=== PATIENT | female | born 1985 | race African-American/Black ===

== ENCOUNTER 2017-10-21 00:35 | Emergency (ER) | payer OTHER ==
[~2017-10-21] VITALS: Ht 160 cm; Wt 106.9 kg
[~2017-10-21 00:35] MED LIST: FIORIC PO; FLUC100T2 PO; MACR100C PO; PHEN-426 PO; PROM25TA5 PO
[2017-10-21 00:44] VITALS: BP 162/92; PULSE 97; RESP 20; TEMP 98.3; O2SAT 98
--- NOTE | 2017-10-21 03:34 | PD ---
HPI Chief Complaint: Porter Luggage Problem/Complaint Time Seen by Provider: 03:31 Travel History International Travel<30 days: No Contact w/Intl Traveler<30days: No Traveled to known affect area: No History of Present Illness HPI The patient is a 5-year-old female, G0, P0, A0 that complains of some slight left pelvic pain that occasionally goes over to the right. Her pain intensity is only a 4/10 and all pain. She has never had this pain before. She is sexually active without protection. She denies any nausea, vomiting, fever. She denies any foul-smelling vaginal discharge. She does not use control pills. She does not have a elevator repairer helper. The patient states she missed her last menstrual period and she normally has regular periods. [facility] Past Medical History Medical History: Denies Significant Hx Diminished Hearing: No Influenza Vaccination: No ?: Unknown LMP: 08/14/17 : 0 Past Surgical History Surgical History: No Previous Surgery Social History Alcohol Use: Yes (SOCIAL) Tobacco Use: No ("LAST TIME I SMOKED WAS AGE 30") Substance Use: No Allergies-Medications (Allergen,Severity, Reaction): Coded Allergies: chocolate flavor (Unverified Allergy, Severe, RASH, 10/21/17) Reported Meds & Prescriptions Reported Meds & Active Scripts Active Ibuprofen 600 Mg Tab 600 Mg PO TID Review of Systems Except as stated in HPI: all other systems reviewed are Neg Physical Exam Narrative GENERAL: The patient is obese, alert, oriented 3 in minimal apparent distress with her left pelvic pain. Her vital signs show blood pressure 162/92 but otherwise are normal. SKIN: Focused skin assessment warm/dry. HEAD: Atraumatic. Normocephalic. EYES: Pupils equal and round. No scleral icterus. No injection or drainage. ENT: No nasal bleeding or discharge. Mucous membranes pink and moist. NECK: Trachea midline. No JVD. CARDIOVASCULAR: Regular rate and rhythm. No murmur appreciated. RESPIRATORY: No accessory muscle use. Clear to auscultation. Breath sounds equal bilaterally. GASTROINTESTINAL: Abdomen soft, non-tender, nondistended. Hepatic and splenic margins not palpable. MUSCULOSKELETAL: No obvious deformities. No clubbing. No cyanosis. No edema. NEUROLOGICAL: Awake and alert. No obvious cranial nerve deficits. Motor grossly within normal limits. Normal speech. PSYCHIATRIC: Appropriate mood and affect; insight and judgment normal. GENITOURINARY: Normal external genitalia without lesions or erythema. Vaginal vault without blood but there is a pure white, [id number] drainage. Cervical os was closed without drainage. There is slight cervical motion tenderness and movement of the cervix does reproduce the patient's pain.. Uterus nontender and nonenlarged. The right adnexa nontender without masses. The left adnexa is minimally tender with no masses. Data Data Last Documented VS Vital Signs Date Time Temp Pulse Resp B/P (MAP) Pulse Ox O2 Delivery O2 Flow Rate FiO2 10/21/17 03:48 81 16 134/92 (106) 98 Room Air 10/21/17 00:44 98.3 Orders Orders Urinalysis - C+S If Indicated (10/21/17 03:15) Gc And Chlamydia Pcr (10/21/17 03:35) Wet Prep Profile (10/21/17 03:35) Ed Urine Pregnancytest Poc (10/21/17 03:35) Ibuprofen (Motrin) (10/21/17 04:30) Ed Discharge Order (10/21/17 04:27) Labs Laboratory Tests Test 10/21/17 03:20 10/21/17 03:30 Urine Color YELLOW Urine Turbidity CLEAR Urine pH 6.0 Urine Specific [place] 1.020 Urine Protein NEG mg/dL Urine Glucose (UA) NEG mg/dL Urine Ketones NEG mg/dL Urine Occult Blood NEG Urine Nitrite NEG Urine Bilirubin NEG Urine Leukocyte Esterase NEG Urine Squamous Epithelial Cells 0-5 /hpf Microscopic Urinalysis Comment CULT NOT INDICATED Clue Cells (Wet Prep) NONE SEEN Vaginal Trichomonas (Wet Prep) NONE SEEN Vaginal Yeast (Wet Prep) NONE SEEN MDM Medical Decision Making Medical Screen Exam Complete: Yes Emergency Medical Condition: Yes Medical Record Reviewed: Yes Interpretation(s) The urine test is negative. The wet prep is negative for Trichomonas , clue cells and [place]. The urinalysis is normal and culture is not indicated. Differential Diagnosis Monilial vaginitis, Trichomonas vaginitis, bacterial vaginosis, PID, ovarian cyst Narrative Course The patient likely has an ovarian cyst. Her pain is minimal and we will give her Motrin for this. She is to follow-up with a elevator repairer helper. Diagnosis Primary Impression: Left ovarian cyst Additional Instructions: As we discussed, you need to see a elevator repairer helper next week or as soon as possible. We will give you Motrin 600 mg 3 times a day for the discomfort. We also gave you your laboratory work that we did here. Med/Other Pt SpecificInfo: Prescription(s) given Scripts Ibuprofen (Ibuprofen) 600 Mg Tab 600 MG PO TID, #44 TAB 0 Refills Prov: Ladarius Rowe MD 10/21/17 Disposition: 01 DISCHARGE HOME Condition: Stable Ladarius Rowe MD Oct 21, 2017 03:34
[2017-10-21 03:38] LABS: BILIRUBIN, URINE NEG (NEG); BLOOD, URINE NEG (NEG); GLUCOSE,URINE NEG (NEG); KETONE, URINE NEG (NEG); NITRITE,URINE NEG (NEG); URINE LEUKOCYTE ESTERASE NEG (NEG)
[2017-10-21 03:48] VITALS: BP 134/92; PULSE 81; RESP 16; O2SAT 98
[2017-10-21 03:59] LABS: URINE COLOR YELLOW (YELLW/STRAW)
[2017-10-21 04:00] LABS: SQUAMOUS EPITHELIAL CELL URINE 0-5 /hpf (0-5)
[2017-10-21] MEDS ORDERED: IBUP-232 PO (04:25)
[2017-10-21] MEDS ORDERED: IBUPROFEN 600 MG TAB PO ONE (04:30)
== END 2017-10-21 04:35 | disposition home or self-care (01) ==
LOC: PHED 00:35
DX: N83.202 Unspecified ovarian cyst, left side (principal)
CPT/HCPCS: 81001; 84703; 87210; 87491; 87591; 99283